=== PATIENT | male | born 1960 | race Caucasian/White ===

== ENCOUNTER 2025-09-14 06:26 | Outpatient (CLI) | payer MEDICAID ==
[2025-09-14] MEDS ORDERED: GADOTERATE MEGLUMINE 7.5 MMOL/15 ML VIAL IV ONE (06:38)
[2025-09-14] MEDS ORDERED: LIDOcaine 1%/PF 5ML 10 MG/ML VIAL ONE (06:38)
[2025-09-14] MEDS ORDERED: LIDOcaine 1% 30ml preserv. free vial ONE (06:38)
[2025-09-14] MEDS ORDERED: iohexol 300 MG/1 ML 50ml polymer ONE (06:38)
--- NOTE | 2025-09-14 14:38 | RADIOLOGY REPORT ---
CLINICAL INFORMATION: Right hip pain. TECHNIQUE: Multisequence multiplanar MR arthrogram of the right hip were obtained after the uneventful intra-articular injection of a dilute gadolinium contrast mixture under fluoroscopic guidance. Refer to the separately dictated arthrogram injection report for details concerning the contrast injection. COMPARISON: None FINDINGS: BONES: No acute fracture or osteonecrosis. Larger [id number] images including the left hip demonstrate prominent artifact from left hip arthroplasty. JOINT: Moderate arthritic changes are seen in the right hip with joint space narrowing and subchondral cystic change. There is adequate distention of the joint with contrast. No loose bodies visualized. There are tears of the superior labrum, anterior superior labrum, and posterior superior labrum of the right hip. BURSAE: Mild edema and small amount of fluid in the right hip trochanteric bursa. TENDONS: Mild tendinosis of the distal gluteus medius and minimus tendons. Origins of the rectus femoris tendon and hamstring tendons are intact. Distal insertion of the iliopsoas tendon is intact. MUSCLES: Normal muscle bulk. No significant atrophy. No evidence of muscle strain or tear. OTHER: No other significant findings. IMPRESSION: 1. Tears of the superior, anterior superior, and posterior superior labrum of the right hip. 2. Moderate arthritic changes in the right hip. 3. Additional findings as described above.
--- NOTE | 2025-09-14 18:30 | RADIOLOGY REPORT ---
ANGIO ARTHROGRAM (A) Date: 09/14/2025 07:21 AM Clinical History: RIGHT HIP PAIN Comparison: None Procedure: Verbal and written informed consent were obtained from the patient for the procedure of RIGHT HIP fluoroscopically guided arthrogram, after the procedure, risks, and benefits of the procedure were explained to the patient. Risks include bleeding, infection, reaction to injected medications, and damage to surrounding anatomic structures. The patient's questions were answered. The patient's most recent medical history was reviewed. A time out was performed to verify the patient's name, date of , and correct location of the procedure, prior to initiation of the procedure. The patient was placed supine on the fluoroscopic table and the area overlying the right hip was prepped and draped in the usual sterile fashion. The patient tolerated the procedure well. There were no immediate complications. Home-care instructions were reviewed with the patient prior to the patient's discharge from the fluoroscopy suite. The patient verbally affirmed understanding of these instructions. Impression: Technically successful fluoroscopically guided RIGHT HIP arthrogram. The patient was transported to MRI for further imaging at the completion of the procedure. procedure by dr riggs
== END 2025-09-14 23:59 | disposition home or self-care (01) ==
LOC: MRI 06:26
PROVIDERS: ATTEND Physician Assistant Surgical
DX: S73.191A Other sprain of right hip, initial encounter (principal); S76.011A Strain of muscle, fascia and tendon of right hip, initial encounter; M16.12 Unilateral primary osteoarthritis, left hip; M25.452 Effusion, left hip; Z87.891 Personal history of nicotine dependence; Z79.899 Other long term (current) drug therapy; Z96.642 Presence of left artificial hip joint; Z98.890 Other specified postprocedural states; X58.XXXA Exposure to other specified factors, initial encounter; Y93.89 Activity, other specified; Y92.89 Other specified places as the place of occurrence of the external cause; Y99.8 Other external cause status
CPT/HCPCS: 27093; 73722; 77002; A9575; J2003; J3490; Q9967